=== PATIENT | female | born 1980 | race Native Hawaiian/Other Pacific Islander ===

== ENCOUNTER 2016-12-25 08:10 | Emergency (ER) | payer BC ==
[~2016-12-25] VITALS: Ht 167.6 cm; Wt 68.0 kg
[2016-12-25] MEDS ORDERED: YAZ1 TAB OR (08:15)
[2016-12-25] MEDS ORDERED: STRATTERA10 MG OR (08:19)
[2016-12-25 08:48] LABS: PLATELET COUNT 224 K/uL (152-353)
[2016-12-25 08:55] LABS: POTASSIUM 3.9 mmol/L (3.6-5.2); SODIUM 137 mmol/L (136-145)
[2016-12-25 10:46] VITALS: BP 106/67; TEMP 98.5
== END 2016-12-25 11:00 | disposition home or self-care (01) ==
LOC: ED 08:10
DX: I10 Essential (primary) hypertension (principal); R51 Headache
CPT/HCPCS: 36415; 80053; 85027; 96361; 96374; 96375; 99283; J1100; J1200; J1885; J2405

== ENCOUNTER 2017-01-01 08:45 | Outpatient (CLI) | payer BC ==
[~2017-01-01 08:45] MED LIST: STRATTERA10 MG OR; YAZ1 TAB OR
== END 2017-01-01 09:45 | disposition home or self-care (01) ==
LOC: LABW 08:45
DX: G31.84 Mild cognitive impairment of uncertain or unknown etiology (principal)
CPT/HCPCS: 82607; 82746; 83918; 84443

== ENCOUNTER 2017-02-01 08:51 | Outpatient (CLI) | payer BC | END 2017-02-01 11:00 | disposition home or self-care (01) | LOC: MRI 08:51 | DX: E34.8 Other specified endocrine disorders (principal) | CPT/HCPCS: A9576 ==

== ENCOUNTER 2017-05-27 16:05 | Outpatient (CLI) | payer BC | END 2017-05-27 19:43 | disposition home or self-care (01) | LOC: LAB 16:05 | DX: R68.89 Other general symptoms and signs (principal) | CPT/HCPCS: 87804 ==

== ENCOUNTER 2019-02-19 09:53 | Outpatient (CLI) | payer BC | END 2019-02-19 19:45 | disposition home or self-care (01) | LOC: LABW 09:53 | DX: O03.4 Incomplete spontaneous abortion without complication (principal) | CPT/HCPCS: 36415; 84702 ==

== ENCOUNTER 2019-05-11 15:53 | Outpatient (CLI) | payer BC ==
[2019-05-11 16:22] LABS: PLATELET COUNT 244 K/uL (152-353)
[2019-05-11 16:23] LABS: POTASSIUM 3.7 mmol/L (3.6-5.2)
== END 2019-05-11 22:28 | disposition home or self-care (01) ==
LOC: LABW 15:53
PROVIDERS: Specialist
DX: Z41.1 Encounter for cosmetic surgery (principal)
CPT/HCPCS: 36415; 80048; 85027

== ENCOUNTER 2020-04-14 07:35 | Day surgery (SDC) | payer BC ==
[2020-04-12 15:29] LABS: PLATELET COUNT 243 K/uL (152-353)
[2020-04-12 15:45] LABS: POTASSIUM 3.2 mmol/L (3.6-5.2)
== END 2020-04-14 10:40 | disposition home or self-care (01) ==
LOC: OR 07:35
PROVIDERS: ATTEND Student in an Organized Health Care Education/Training Program
PROC: 0DB48ZZ Excision of Esophagogastric Junction, Via Natural or Artificial Opening Endoscopic (ICD-10-PCS; principal; 2020-04-14)
PROC: 0DB68ZZ Excision of Stomach, Via Natural or Artificial Opening Endoscopic (ICD-10-PCS; 2020-04-14)
DX: K29.50 Unspecified chronic gastritis without bleeding (principal); K44.9 Diaphragmatic hernia without obstruction or gangrene; K20.0 Eosinophilic esophagitis; R11.0 Nausea; R10.84 Generalized abdominal pain
CPT/HCPCS: 80053; 85027; J2001; J2704

== ENCOUNTER 2020-05-23 10:50 | Outpatient (CLI) | payer BC | END 2020-05-23 19:22 | disposition home or self-care (01) | LOC: US 10:50 | PROVIDERS: ATTEND Nurse Practitioner Family | DX: R22.1 Localized swelling, mass and lump, neck (principal); R53.81 Other malaise; R53.83 Other fatigue ==

== ENCOUNTER 2020-07-11 08:01 | Outpatient (CLI) | payer BC ==
[~2020-07-11] VITALS: Ht 167.6 cm; Wt 87.5 kg
== END 2020-07-11 19:16 | disposition home or self-care (01) ==
LOC: DIABINF 08:01
PROVIDERS: ATTEND Internal Medicine Endocrinology, Diabetes & Metabolism
DX: E88.81 Metabolic syndrome and other insulin resistance (principal); I10 Essential (primary) hypertension; E53.8 Deficiency of other specified B group vitamins; E56.9 Vitamin deficiency, unspecified; K21.9 Gastro-esophageal reflux disease without esophagitis; Z68.30 Body mass index [BMI] 30.0-30.9, adult
CPT/HCPCS: 82948; 96365; 96366; 96521; 99204; J1718; J1815

== ENCOUNTER 2020-07-12 07:51 | Outpatient (CLI) | payer BC ==
[~2020-07-12] VITALS: Ht 167.6 cm; Wt 87.5 kg
== END 2020-07-12 19:11 | disposition home or self-care (01) ==
LOC: DIABINF 07:51
PROVIDERS: ATTEND Internal Medicine Endocrinology, Diabetes & Metabolism
DX: E88.81 Metabolic syndrome and other insulin resistance (principal); I10 Essential (primary) hypertension; E53.8 Deficiency of other specified B group vitamins; E56.9 Vitamin deficiency, unspecified; K21.9 Gastro-esophageal reflux disease without esophagitis
CPT/HCPCS: 82948; 96365; 96366; 96521; 99214; J1718; J1815

== ENCOUNTER 2020-07-18 08:06 | Outpatient (CLI) | payer BC ==
[~2020-07-18] VITALS: Ht 167.6 cm; Wt 87.5 kg
== END 2020-07-18 22:09 | disposition home or self-care (01) ==
LOC: DIABINF 08:06
PROVIDERS: ATTEND Internal Medicine Endocrinology, Diabetes & Metabolism
DX: E88.81 Metabolic syndrome and other insulin resistance (principal); I10 Essential (primary) hypertension; E53.8 Deficiency of other specified B group vitamins; E56.9 Vitamin deficiency, unspecified; K21.9 Gastro-esophageal reflux disease without esophagitis; E66.8 Other obesity; Z68.30 Body mass index [BMI] 30.0-30.9, adult; Z71.3 Dietary counseling and surveillance
CPT/HCPCS: 82948; 96365; 96366; 96521; 99213; J1718; J1815

== ENCOUNTER 2020-07-18 13:28 | Outpatient (CLI) | payer BC | END 2020-07-18 22:16 | disposition home or self-care (01) | LOC: US 13:28 | PROVIDERS: ATTEND Internal Medicine Endocrinology, Diabetes & Metabolism | DX: E04.9 Nontoxic goiter, unspecified (principal) ==

== ENCOUNTER 2020-07-19 08:03 | Outpatient (CLI) | payer BC ==
[~2020-07-19] VITALS: Ht 167.6 cm; Wt 87.5 kg
== END 2020-07-19 20:40 | disposition home or self-care (01) ==
LOC: DIABINF 08:03
PROVIDERS: ATTEND Internal Medicine Endocrinology, Diabetes & Metabolism
DX: E88.81 Metabolic syndrome and other insulin resistance (principal); I10 Essential (primary) hypertension; E53.8 Deficiency of other specified B group vitamins; E56.9 Vitamin deficiency, unspecified; K21.9 Gastro-esophageal reflux disease without esophagitis; E66.8 Other obesity; Z68.30 Body mass index [BMI] 30.0-30.9, adult; Z71.3 Dietary counseling and surveillance
CPT/HCPCS: 82948; 96365; 96366; 96521; 99213; J1718; J1815

== ENCOUNTER 2020-07-26 08:04 | Outpatient (CLI) | payer BC ==
[~2020-07-26] VITALS: Ht 167.6 cm; Wt 87.5 kg
== END 2020-07-26 21:40 | disposition home or self-care (01) ==
LOC: DIABINF 08:04
PROVIDERS: ATTEND Internal Medicine Endocrinology, Diabetes & Metabolism
DX: E88.81 Metabolic syndrome and other insulin resistance (principal); R73.03 Prediabetes; I10 Essential (primary) hypertension; K21.9 Gastro-esophageal reflux disease without esophagitis; E66.8 Other obesity; Z68.39 Body mass index [BMI] 39.0-39.9, adult; E53.8 Deficiency of other specified B group vitamins; R53.82 Chronic fatigue, unspecified
CPT/HCPCS: 82948; 96365; 96366; 96521; 99214; J1718; J1815

== ENCOUNTER 2020-08-02 07:53 | Outpatient (CLI) | payer BC ==
[~2020-08-02] VITALS: Ht 167.6 cm; Wt 87.5 kg
== END 2020-08-02 19:48 | disposition home or self-care (01) ==
LOC: DIABINF 07:53
PROVIDERS: ATTEND Internal Medicine Endocrinology, Diabetes & Metabolism
DX: E88.81 Metabolic syndrome and other insulin resistance (principal); R73.03 Prediabetes; I10 Essential (primary) hypertension; K21.9 Gastro-esophageal reflux disease without esophagitis; E66.8 Other obesity; Z68.39 Body mass index [BMI] 39.0-39.9, adult; E53.8 Deficiency of other specified B group vitamins; R53.82 Chronic fatigue, unspecified
CPT/HCPCS: 82948; 96365; 96366; 96521; 99213; J1718; J1815

== ENCOUNTER 2020-08-10 07:51 | Outpatient (CLI) | payer BC ==
[~2020-08-10] VITALS: Ht 167.6 cm; Wt 87.5 kg
== END 2020-08-10 19:59 | disposition home or self-care (01) ==
LOC: DIABINF 07:51
PROVIDERS: ATTEND Internal Medicine Endocrinology, Diabetes & Metabolism
DX: E88.81 Metabolic syndrome and other insulin resistance (principal); R73.03 Prediabetes; I10 Essential (primary) hypertension; K21.9 Gastro-esophageal reflux disease without esophagitis; E66.8 Other obesity; Z68.39 Body mass index [BMI] 39.0-39.9, adult; E53.8 Deficiency of other specified B group vitamins; R53.82 Chronic fatigue, unspecified; N30.00 Acute cystitis without hematuria; J06.9 Acute upper respiratory infection, unspecified
CPT/HCPCS: 82948; 96365; 96366; 96521; 99213; J1718; J1815

== ENCOUNTER 2020-08-15 08:21 | Outpatient (CLI) | payer BC ==
[~2020-08-15] VITALS: Ht 167.6 cm; Wt 87.5 kg
== END 2020-08-15 19:08 | disposition home or self-care (01) ==
LOC: DIABINF 08:21
PROVIDERS: ATTEND Internal Medicine Endocrinology, Diabetes & Metabolism
DX: E88.81 Metabolic syndrome and other insulin resistance (principal); R73.03 Prediabetes; I10 Essential (primary) hypertension; K21.9 Gastro-esophageal reflux disease without esophagitis; E66.8 Other obesity; Z68.39 Body mass index [BMI] 39.0-39.9, adult; E53.8 Deficiency of other specified B group vitamins; R53.82 Chronic fatigue, unspecified; N30.00 Acute cystitis without hematuria; J06.9 Acute upper respiratory infection, unspecified
CPT/HCPCS: 82948; 96365; 96366; 96521; 99214; J1718; J1815

== ENCOUNTER 2020-08-23 12:25 | Outpatient (CLI) | payer BC ==
[~2020-08-23] VITALS: Ht 167.6 cm; Wt 87.5 kg
== END 2020-08-23 21:04 | disposition home or self-care (01) ==
LOC: DIABINF 12:25
PROVIDERS: ATTEND Internal Medicine Endocrinology, Diabetes & Metabolism
DX: E88.81 Metabolic syndrome and other insulin resistance (principal); R73.03 Prediabetes; I10 Essential (primary) hypertension; K21.9 Gastro-esophageal reflux disease without esophagitis; E66.8 Other obesity; Z68.39 Body mass index [BMI] 39.0-39.9, adult; E53.8 Deficiency of other specified B group vitamins; R53.82 Chronic fatigue, unspecified; N30.00 Acute cystitis without hematuria; J06.9 Acute upper respiratory infection, unspecified
CPT/HCPCS: 82948; 96365; 96366; 96521; 99214; J1718; J1815

== ENCOUNTER 2020-08-30 08:24 | Outpatient (CLI) | payer BC ==
[~2020-08-30] VITALS: Ht 167.6 cm; Wt 87.5 kg
== END 2020-08-30 20:15 | disposition home or self-care (01) ==
LOC: DIABINF 08:24
PROVIDERS: ATTEND Internal Medicine Endocrinology, Diabetes & Metabolism
DX: E88.81 Metabolic syndrome and other insulin resistance (principal); R73.03 Prediabetes; I10 Essential (primary) hypertension; K21.9 Gastro-esophageal reflux disease without esophagitis; E66.8 Other obesity; Z68.39 Body mass index [BMI] 39.0-39.9, adult; E53.8 Deficiency of other specified B group vitamins; R53.82 Chronic fatigue, unspecified; N30.00 Acute cystitis without hematuria; J06.9 Acute upper respiratory infection, unspecified; F41.1 Generalized anxiety disorder; F32.9 Major depressive disorder, single episode, unspecified
CPT/HCPCS: 82948; 96365; 96366; 96521; 99214; J1718; J1815

== ENCOUNTER 2020-09-01 09:51 | Outpatient (CLI) | payer BC | END 2020-09-01 19:24 | disposition home or self-care (01) | LOC: NM 09:51 | PROVIDERS: ATTEND Family Medicine | DX: E04.9 Nontoxic goiter, unspecified (principal) | CPT/HCPCS: A9516 ==

== ENCOUNTER 2021-04-11 08:44 | Outpatient (CLI) | payer BC | END 2021-04-11 18:55 | disposition home or self-care (01) | LOC: LAB 08:44 | PROVIDERS: ATTEND Family Medicine | DX: E03.9 Hypothyroidism, unspecified (principal) | CPT/HCPCS: 36415; 84436; 84439; 84443; 84481 ==

== ENCOUNTER → 2021-04-17 | Outpatient (CLI) | payer BC | LOC: MRI 04-13 10:00 | PROVIDERS: ATTEND Specialist | DX: M54.2 Cervicalgia (principal); M25.511 Pain in right shoulder; M54.12 Radiculopathy, cervical region; R29.898 Other symptoms and signs involving the musculoskeletal system ==

== ENCOUNTER 2021-08-23 13:05 | Outpatient (CLI) | payer OTHER ==
[2021-08-23 13:35] LABS: POTASSIUM 3.9 mmol/L (3.6-5.2)
== END 2021-08-23 19:18 | disposition home or self-care (01) ==
LOC: LAB 13:05
PROVIDERS: ATTEND Family Medicine
DX: E03.9 Hypothyroidism, unspecified (principal); Z13.220 Encounter for screening for lipoid disorders; E53.8 Deficiency of other specified B group vitamins; R68.82 Decreased libido; I10 Essential (primary) hypertension
CPT/HCPCS: 80053; 80061; 82607; 82670; 83001; 84402; 84403; 84436; 84443; 84481

== ENCOUNTER 2022-11-14 08:17 | Outpatient (CLI) | payer OTHER | END 2022-11-14 20:21 | disposition home or self-care (01) | LOC: MAMMO 08:17 | PROVIDERS: ATTEND Nurse Practitioner Family | DX: Z12.31 Encounter for screening mammogram for malignant neoplasm of breast (principal) ==

== ENCOUNTER 2022-12-11 11:45 | Observation (INO) | payer OTHER ==
[~2022-12-11] VITALS: Ht 167.6 cm; Wt 77.1 kg
[2022-12-11] VITALS (9 sets, daily range): BP systolic 114–139; BP diastolic 70–100; TEMP 97.6–98; Ht 167.6 cm; Wt 77.1 kg
[2022-12-11 12:16] LABS: PLATELET COUNT 324 K/uL (152-353)
[2022-12-11 12:30] LABS: POTASSIUM 3.1 mmol/L (3.6-5.2)
[2022-12-11] MEDS ORDERED: MOBIC15 MG PO (18:46)
[2022-12-11] MEDS ORDERED: DEXL60CA4 PO (18:56)
[2022-12-11] MEDS ORDERED: NP THYROID60 MG PO (18:57)
[2022-12-11] MEDS ORDERED: HYDR25TA60 PO (18:58)
[2022-12-11] MEDS ORDERED: WELLBUTRIN150 MG PO (18:59)
[2022-12-12] VITALS: BP 125/79; TEMP 97.9
[2022-12-12 04:00] VITALS: BP 97/61; TEMP 98.7
[2022-12-12 04:53] LABS: PLATELET COUNT 293 K/uL (152-353)
[2022-12-12 04:54] LABS: POTASSIUM 4.1 mmol/L (3.6-5.2)
[2022-12-12 07:57] VITALS: BP 117/80; TEMP 98.3
[2022-12-12 12:00] VITALS: BP 129/85; TEMP 98.2
[2022-12-12] MEDS ORDERED: CRESTOR5 MG PO (15:26)
[2022-12-12] MEDS ORDERED: IMITREX100 MG PO (15:29)
== END 2022-12-12 16:07 | disposition home or self-care (01) ==
LOC: ED 11:51 → MED/SURG 13:32
PROVIDERS: Family Medicine; ADMIT Nurse Practitioner Family; ATTEND Internal Medicine Endocrinology, Diabetes & Metabolism
DX: R53.1 Weakness (principal); R51.9 Headache, unspecified; R20.2 Paresthesia of skin; R41.82 Altered mental status, unspecified; E78.49 Other hyperlipidemia; E87.6 Hypokalemia; D72.828 Other elevated white blood cell count; I10 Essential (primary) hypertension
CPT/HCPCS: 36415; 80053; 80061; 81002; 81025; 84439; 84443; 84484; 85027; 87635; 93005; 96361; 96372; 96374; 96375; 96376; 99221; 99284; A9576; G0378; J1100; J1200; J1650; J1885; J2765; U0003

== ENCOUNTER 2022-12-17 11:25 | Outpatient (CLI) | payer OTHER ==
[~2022-12-17 11:25] MED LIST changes: +CRESTOR5 MG PO; +DEXL60CA4 PO; +HYDR25TA60 PO; +IMITREX100 MG PO; +MOBIC15 MG PO; +NP THYROID60 MG PO; +WELLBUTRIN150 MG PO
== END 2022-12-17 21:28 | disposition home or self-care (01) ==
LOC: LAB 11:25
PROVIDERS: ATTEND Family Medicine
DX: G43.909 Migraine, unspecified, not intractable, without status migrainosus (principal); E53.8 Deficiency of other specified B group vitamins
CPT/HCPCS: 36415; 82607; 82746